=== PATIENT | male | born 1990 | race Two or more races ===

== ENCOUNTER 2020-05-03 23:14 | Emergency (ER) | payer MEDICAID ==
[~2020-05-03] VITALS: Ht 180.3 cm; Wt 89.6 kg
[2020-05-03] MEDS ORDERED: MAALOX/HYOSCYAMINE/LIDOCAINE 45 ML BTL ONE (23:51)
[2020-05-04] MEDS ORDERED: MAALOX/HYOSCYAMINE/LIDOCAINE 45 ML BTL PO ONE
[2020-05-04] MEDS ORDERED: KETOROLAC 30 MG/1 ML ONE (00:38)
[2020-05-04] MEDS ORDERED: KETOROLAC 60 MG/2 ML ONE (00:42)
[2020-05-04 00:45] VITALS: BP 123/71
[2020-05-04] MEDS ORDERED: KETOROLAC 60 MG/2 ML IM ONE (01:00)
== END 2020-05-04 00:56 | disposition home or self-care (01) ==
LOC: ED 05-04 00:04
DX: R07.89 Other chest pain (principal); R11.2 Nausea with vomiting, unspecified; R42 Dizziness and giddiness; R11.0 Nausea
CPT/HCPCS: 93005; 96372; 99283; J1885

== ENCOUNTER 2020-05-06 08:37 | Emergency (ER) | payer MEDICAID ==
[~2020-05-06] VITALS: Ht 180.3 cm; Wt 87.5 kg
--- NOTE | 2020-05-06 08:53 | NUR ---
EKG IN TRIAGE
[2020-05-06 09:30] LABS: BASOPHILS % (AUTO) 0 % (0-1); EOSINOPHILS % (AUTO) 2 % (1-7); LYMPHOCYTES % (AUTO) 18 % (22-44); MEAN CORPUSCULAR HEMOGLOBIN 29.9 pg (27.5-34.5); MEAN CORPUSCULAR HGB CONC 33.4 g/dL (33.2-36.2); MEAN PLATELET VOLUME 8.8 fL (7.4-10.4); MONOCYTES % (AUTO) 11 % (2-9); NEUTROPHILS % (AUTO) 69 % (42-75); PLATELET COUNT 208 x10^3/uL (130-400); RED BLOOD COUNT 5.53 x10^6/uL (4.38-5.82); RED CELL DISTRIBUTION WIDTH 12.7 % (9.4-14.8)
[2020-05-06 09:33] LABS: MD NO
[2020-05-06 09:42] LABS: ALANINE AMINOTRANSFERASE 31 U/L (12-78); ALBUMIN 4.2 g/dL (3.4-5.0); ANION GAP 5 mmol/L (5-15); CALCIUM 9.2 mg/dL (8.5-10.1); CHLORIDE 111 mmol/L (98-107); CREATININE 1.35 mg/dL (0.7-1.3)
[2020-05-06 09:46] LABS: ALKALINE PHOSPHATASE 74 U/L (45-117); BILIRUBIN,TOTAL 1.3 mg/dL (0.2-1.0); TROPONIN I < 0.015 ng/mL (0.000-0.045)
--- NOTE | 2020-05-06 10:03 | NUR ---
PROCESS PLANT OPERATOR: PT TO ROOM FROM LIANNE PAUL
--- NOTE | 2020-05-06 10:05 | NUR ---
ASSUMED CARE OF PT AT THIS TIME FROM LOBBY. AMBULATORY TO ROOM WITH STEADY GAIT. ACCOMPANIED BY SPOUSE. JOSE DAVID SURJIT AT BEDSIDE FOR EVALUATION. 30 Y/O M PRESENTS WITH "9/10 PAIN IN MY STOMACH, CHEST AND THE LOWER PART OF MY BACK FOR LAST 3-4 DAYS, I'VE BEEN HERE AND [place] AND THEY BOTH SAY NOTHING IS WRONG, THEY GAVE ME A SHOT OF MEDICINE IN HOSPITAL BOTH TIMES AND SENT ME HOME, I STILL HAVE THE PAIN." ASSESSMENT COMPLETED. TENDER TO PALPATION IN STERNUM, EPIGASTRIC AND BILATERAL FLANK. CP REPRODUCABLE WITH PALPATION. DENIES SOB OR DIFFICULTY BREATHING AT THIS TIME. RESP REGULAR AND UNLABORED. CONT PULSE OX, BP, CARDIAC MONITORS APPLIED. VSS. SR ON MONITOR. CALL LIGHT IN REACH. FALL PRECAUTIONS IN PLACE. SPOUSE AT BEDSIDE. AWAITING ADDITIONAL ORDERS. PT A&OX4.
[2020-05-06] MEDS ORDERED: MAALOX/HYOSCYAMINE/LIDOCAINE 45 ML BTL ONE (10:25)
[2020-05-06] MEDS ORDERED: MAALOX/HYOSCYAMINE/LIDOCAINE 45 ML BTL PO ONE (10:30)
--- NOTE | 2020-05-06 10:36 | NUR ---
PT MEDICATED NOTED IN [facility] PER ORDER FOR 03/10 EPIGASTRIC, CP, BILATERAL FLANK PAIN. REMAINS SR ON MONITOR. VSS. SPOUSE AT BEDSIDE. US AT BEDSIDE. CALL LIGHT IN REACH. FALL PRECAUTIONS IN PLACE. DENIES NEED TO USE RESTROOM.
--- NOTE | 2020-05-06 10:41 | NUR ---
PT UPDATED ON POC, UA SAMPLE ORDERED BY ERP. DENIES URGE AT THIS TIME, US REMAINS AT BEDSIDE. WILL ATTEMPT UA S/P US EXAM COMPLETION.
--- NOTE | 2020-05-06 11:27 | NUR ---
PT UP AND AMBULATORY TO RESTROOM WITH STEADY GAIT FOR UA SAMPLE. PT REPORTS NO CHANGE IN PAIN S/P GI COCKTAIL. TO DISCUSS PAIN WITH PROVIDER. CALL LIGHT IN REACH. FALL PRECUATIONS IN PLACE. SPOUSE AT BEDSIDE.
--- NOTE | 2020-05-06 11:33 | NUR ---
UA COLLECTED AND SENT TO LAB. BEDSIDE REPORT AND TRANSFER OF CARE TO [facility] AT THIS TIME.
[2020-05-06] MEDS ORDERED: ONDANSETRON 2MG/ML, 2ML ONE (11:45)
[2020-05-06] MEDS ORDERED: MORPHINE SULFATE 4 MG/ML, 1ML ONE (11:45)
--- NOTE | 2020-05-06 11:54 | NUR ---
PIV PLACED. MEDS ADMIN PER AUG.
[2020-05-06 11:55] VITALS: BP 125/84
[2020-05-06] MEDS ORDERED: ONDANSETRON 2MG/ML, 2ML IVPush ONE (12:00)
[2020-05-06] MEDS ORDERED: MORPHINE SULFATE 4 MG/ML, 1ML IVPush PRN (12:00)
[2020-05-06] MEDS ORDERED: SODIUM CHLORIDE FLUSH 10ML SYR IVF ONE (12:00)
[2020-05-06 12:18] LABS: MICROSCOPIC AUTO
--- NOTE | 2020-05-06 12:39 | NUR ---
ALL RESULTS ARE BACK AT THIS TIME. CHART UP FOR RECHECK. PT STATES PAIN IS BETTER.
--- NOTE | 2020-05-06 12:54 | NUR ---
MD AT BEDSIDE TO UPDATE PT ON POC.
== END 2020-05-06 13:56 | disposition home or self-care (01) ==
LOC: ED 11:38
DX: K29.00 Acute gastritis without bleeding (principal); I21.9 Acute myocardial infarction, unspecified; R94.31 Abnormal electrocardiogram [ECG] [EKG]
CPT/HCPCS: 36415; 71045; 76700; 80053; 81001; 83690; 84484; 85025; 93005; 96374; 96375; 99285; J2270; J2405

== ENCOUNTER 2020-07-03 11:04 | Emergency (ER) | payer MEDICAID ==
[~2020-07-03] VITALS: Ht 180.3 cm; Wt 87.1 kg
--- NOTE | 2020-07-03 11:33 | NUR ---
Pt placed on bedside monitor, A/O x4, c/o epigastric pain. Has a GI MD and has famotadine 40mg PO at home for dx GERD.
--- NOTE | 2020-07-03 11:34 | NUR ---
PT DEVELOPED EPIGASTRIC PAIN WITH N/V AND DIZZINESS WHILE AT WORK
[2020-07-03] MEDS ORDERED: FAMO10TA77 PO (11:38)
[2020-07-03] MEDS ORDERED: MAALOX/HYOSCYAMINE/LIDOCAINE 45 ML BTL ONE (11:54)
[2020-07-03] MEDS ORDERED: MAALOX/HYOSCYAMINE/LIDOCAINE 45 ML BTL PO ONE (12:00)
[2020-07-03 12:06] LABS: ALANINE AMINOTRANSFERASE 40 U/L (12-78); ALBUMIN 4.2 g/dL (3.4-5.0); ANION GAP 4 mmol/L (5-15); CALCIUM 9.3 mg/dL (8.5-10.1); CHLORIDE 107 mmol/L (98-107); CREATININE 1.16 mg/dL (0.7-1.3)
[2020-07-03 12:10] LABS: ALKALINE PHOSPHATASE 82 U/L (45-117); TOTAL PROTEIN 7.9 g/dL (6.4-8.2); TROPONIN I < 0.015 ng/mL (0.000-0.045)
[2020-07-03 12:13] LABS: BILIRUBIN,TOTAL 0.5 mg/dL (0.2-1.0)
[2020-07-03 12:22] LABS: BASOPHILS % (AUTO) 1 % (0-1); EOSINOPHILS % (AUTO) 3 % (1-7); LYMPHOCYTES % (AUTO) 30 % (22-44); MEAN CORPUSCULAR HEMOGLOBIN 30.4 pg (27.5-34.5); MEAN CORPUSCULAR HGB CONC 34.5 g/dL (33.2-36.2); MONOCYTES % (AUTO) 11 % (2-9); NEUTROPHILS % (AUTO) 56 % (42-75); PLATELET COUNT 223 x10^3/uL (130-400); RED BLOOD COUNT 5.23 x10^6/uL (4.38-5.82); RED CELL DISTRIBUTION WIDTH 12.9 % (9.4-14.8)
[2020-07-03 12:23] LABS: MD NO
--- NOTE | 2020-07-03 12:25 | NUR ---
Pt states some relief after GI cocktail, but not complete relief.
[2020-07-03 13:05] VITALS: BP 115/65
== END 2020-07-03 13:26 | disposition home or self-care (01) ==
LOC: ED 12:55
DX: K29.00 Acute gastritis without bleeding (principal); R10.13 Epigastric pain; K21.9 Gastro-esophageal reflux disease without esophagitis
CPT/HCPCS: 36415; 71045; 80053; 83690; 84484; 85025; 93005; 99285